=== PATIENT | female | born 1970 | race Caucasian/White ===

== ENCOUNTER 2021-11-10 07:54 | Emergency (ER) | payer OTHER ==
[2021-11-10 08:57] LABS: BILIRUBIN NEGATIVE (NEGATIVE); BLOOD NEGATIVE Ery/uL (NEGATIVE); CLARITY CLEAR (CLEAR); COLOR YELLOW (YELLOW); GLUCOSE (U) NORMAL (NORMAL); LEUKOCYTES TRACE Leu/uL (NEGATIVE); NITRITE NEGATIVE (NEGATIVE); PROTEIN NEGATIVE (NEGATIVE); SPECIFIC GRAVITY <=1.005 (1.001-1.030); UROBILINOGEN 0.2 mg/dL (0.2-1.0)
[2021-11-10] MEDS ORDERED: NORCO 5-325 TA1 EACH PO (11:29)
[2021-11-10] MEDS ORDERED: PREDNISONE 20MG20 MG PO (11:29)
== END 2021-11-10 12:01 | disposition home or self-care (01) ==
LOC: FER 07:54
PROVIDERS: Emergency Medicine
DX: M51.36 Other intervertebral disc degeneration, lumbar region (principal); Z88.1 Allergy status to other antibiotic agents; Z79.899 Other long term (current) drug therapy
CPT/HCPCS: 72110; 81001; J1170; J1885; J2270; J2405; J2930; J3010